=== PATIENT | female | born 1995 | race Caucasian/White ===

== ENCOUNTER 2017-06-13 22:25 | Emergency (ER) | payer SELFPAY ==
[~2017-06-13] VITALS: Ht 175.3 cm; Wt 59.0 kg
[2017-06-13] MEDS ORDERED: NALOXONE 2 MG/2 ML DISP.SYRIN. ONE (22:43)
[2017-06-13 22:51] LABS: BASO # 0.1 x10^3/uL (0.0-0.2); BASO % 1 % (0-3); EOS % 3 % (0-3); HEMOGLOBIN 13.6 g/dL (12.0-15.5); LYMPH # 3.3 x10^3/uL (1.0-4.8); LYMPH % 45 % (24-48); MEAN CORPUSCULAR HEMOGLOBIN 30 pg (25-35); MEAN CORPUSCULAR HGB CONC 33 g/dL (31-37); MEAN CORPUSCULAR VOLUME 92 fL (79-100); MONO % 7 % (0-9); NEUT % 44 % (31-73); PLATELET COUNT 133 x10^3/uL (140-400); RED BLOOD COUNT 4.48 x10^6/uL (3.50-5.40); RED CELL DISTRIBUTION WIDTH 13.1 % (11.5-14.5); WHITE BLOOD COUNT 7.3 x10^3/uL (4.0-11.0)
[2017-06-13] MEDS ORDERED: IV NORMAL SALINE 1000ML BAG 1,000 ML IV ONE (23:00)
[2017-06-13 23:02] LABS: CALCIUM 8.2 mg/dL (8.5-10.1); CREATININE 0.8 mg/dL (0.6-1.0); GFR 88.1; POTASSIUM 3.7 mmol/L (3.5-5.1)
[2017-06-13 23:08] LABS: ALBUMIN 3.7 g/dL (3.4-5.0); ALBUMIN/GLOBULIN RATIO 1.1 (1.0-1.7); TOTAL BILIRUBIN 0.2 mg/dL (0.2-1.0); TOTAL PROTEIN 7.1 g/dL (6.4-8.2)
--- NOTE | 2017-06-14 00:41 | PHYS DOC ---
Past Medical History Past Medical History: No Pertinent History, Other Additional Past Medical Histor: drug abuse Past Surgical History: No Surgical History Alcohol Use: Occasionally Drug Use: Heroin, Marijuana, Other Social History Narrative: K2 Adult General Chief Complaint Chief Complaint: OVERDOSE of heroin HPI HPI Patient is a 22 year old female brought to the ED by EMS after she was reportedly injecting heroin and became unconscious, EMS reportedly administered Narcan and she had a good response. She reportedly also used "K2". On arrival, patient states "I just a little bit too much". She admits that she was injecting heroin into her vein. She denies any intention to harm herself, she was recreationally using heroin. She states that she was with friends at the time. She lives with her father but he is disabled. She asked us to call her mother. Patient denies any chronic medical problems or chronic medications. Review of Systems Review of Systems Patient is too lethargic to be able to cooperate with review of systems on arrival to the ED. Current Medications Current Medications Current Medications Medications (Trade) Dose Ordered Sig/Ky Start Time Stop Time Status Last Admin Dose Admin Naloxone HCl (Narcan) 2 mg STK-MED ONCE 06/13/17 22:43 06/13/17 22:44 DC Sodium Chloride 1,000 ml @ 1,000 mls/hr 1X ONCE 06/13/17 23:00 06/13/17 23:59 DC 06/13/17 22:40 1,000 MLS/HR Allergies Allergies Allergies Coded Allergies Type Severity Reaction Last Updated Verified Penicillins Allergy Unknown 06/13/17 Yes Physical Exam Physical Exam Constitutional: Thin, she has been vomiting, she has eyes closed and is trying to curl up in a ball, she speaks with 2 or 3 words when spoken to with slightly slurred speech. HENT: Normocephalic, atraumatic, bilateral external ears normal, nose normal. [ ] Eyes: conjunctiva normal, no discharge. [] Neck: Normal range of motion, no stridor. [] Cardiovascular:Heart rate regular rhythm, no murmur [] Lungs & Thorax: Bilateral breath sounds clear to auscultation [] Abdomen: Bowel sounds normal, soft, no tenderness, no masses, no pulsatile masses. [] Skin: Warm, dry, no erythema, no rash. She does have recent puncture major in the right antecubital. Extremities: No tenderness, no cyanosis, no clubbing, ROM intact, no edema. [] Neurologic: Lethargic as described, normal motor function, normal sensory function, no focal deficits noted. [] Current Patient Data Vital Signs Vital Signs Date Time Temp Pulse Resp B/P (MAP) Pulse Ox O2 Delivery O2 Flow Rate FiO2 06/14/17 00:43 82 16 112/67 (82) 99 Room Air 06/13/17 22:32 99.2 99.2 Lab Values Laboratory Tests Test 06/13/17 22:36 White Blood Count 7.3 x10^3/uL (4.0-11.0) Red Blood Count 4.48 x10^6/uL (3.50-5.40) Hemoglobin 13.6 g/dL (12.0-15.5) Hematocrit 41.0 % (36.0-47.0) Mean Corpuscular Volume 92 fL (79-100) Mean Corpuscular Hemoglobin 30 pg (25-35) Mean Corpuscular Hemoglobin Concent 33 g/dL (31-37) Red Cell Distribution Width 13.1 % (11.5-14.5) Platelet Count 133 x10^3/uL (140-400) L Neutrophils (%) (Auto) 44 % (31-73) Lymphocytes (%) (Auto) 45 % (24-48) Monocytes (%) (Auto) 7 % (0-9) Eosinophils (%) (Auto) 3 % (0-3) Basophils (%) (Auto) 1 % (0-3) Neutrophils # (Auto) 3.2 x10^3uL (1.8-7.7) Lymphocytes # (Auto) 3.3 x10^3/uL (1.0-4.8) Monocytes # (Auto) 0.5 x10^3/uL (0.0-1.1) Eosinophils # (Auto) 0.2 x10^3/uL (0.0-0.7) Basophils # (Auto) 0.1 x10^3/uL (0.0-0.2) Sodium Level 144 mmol/L (136-145) Potassium Level 3.7 mmol/L (3.5-5.1) Chloride Level 106 mmol/L (98-107) Carbon Dioxide Level 31 mmol/L (21-32) Anion Gap 7 (6-14) Blood Urea Nitrogen 11 mg/dL (7-20) Creatinine 0.8 mg/dL (0.6-1.0) Estimated GFR (Cockcroft-Gault) 88.1 BUN/Creatinine Ratio 14 (6-20) Glucose Level 97 mg/dL (70-99) Calcium Level 8.2 mg/dL (8.5-10.1) L Total Bilirubin 0.2 mg/dL (0.2-1.0) Aspartate Amino Transferase (AST) 19 U/L (15-37) Alanine Aminotransferase (ALT) 20 U/L (14-59) Alkaline Phosphatase 48 U/L (46-116) Total Protein 7.1 g/dL (6.4-8.2) Albumin 3.7 g/dL (3.4-5.0) Albumin/Globulin Ratio 1.1 (1.0-1.7) Laboratory Tests 06/13/17 22:36 Laboratory Tests 06/13/17 22:36 EKG EKG [] Radiology/Procedures Radiology/Procedures [] Course & Med Decision Making Course & Med Decision Making Pertinent Labs and Imaging studies reviewed. (See chart for details) 22-year-old female who was reportedly injecting heroin and also ingested K2, was reportedly unconscious prior to prehospital administration of Narcan. In the ED, she is clinically consistent with recent opiate use, drowsy, lethargic, but maintaining her airway and following commands without difficulty. Patient was given a liter of IV fluids. She was watched in the ED for 2 hours on the monitor. She did not have any desaturation or recent sedation. She did sleep comfortably during most of her ED stay. Police department came to take a report and they ended up taking the patient into custody. After 2 hours with no recent sedation or further complications, I felt the patient was stable for release to custody of police department. [] Dragon Disclaimer Dragon Disclaimer This electronic medical record was generated, in whole or in part, using a voice recognition dictation system. Departure Departure Impression: Primary Impression: Accidental heroin overdose Additional Impression: Opiate abuse, episodic Disposition: 05 TRANSFER OTHER Condition: IMPROVED Referrals: NO PCP (PCP) Patient Instructions: Opiate Dependence Additional Instructions: After heroin overdose, you were given Narcan to reverse the effects of heroin. You were observed here for over 2 hours without recurrence of problems related to heroin. Get plenty of sleep and drink plenty of fluids tonight and tomorrow. Call your doctor for referral to opiate dependency care. Problem Qualifiers MELANIE FORBES MD Jun 14, 2017 00:41
[2017-06-14 00:43] VITALS: BP 112/67
--- NOTE | 2017-06-16 08:10 | EKG ---
[facility] [address] [place] [id number] Test Date: 2017-06-13 Test Time: 22:36:54 Pat Name: ESTELLA SMALL Department: Room: Gender: F Complaint Evaluation Supervisor: : 1995 Requested By: MELANIE FORBES Order Number: [id number] Reading MD: Measurements Intervals [place] Rate: 91 P: 48 AR: 136 QRS: 53 QRSD: 88 T: 39 QT: 320 QTc: 395 Interpretive Statements SINUS RHYTHM NORMAL ECG RI6.01 No previous ECG available for comparison
== END 2017-06-14 00:48 | disposition home or self-care (01) ==
LOC: ER 22:25
DX: T40.1X1A Poisoning by heroin, accidental (unintentional), initial encounter (principal); F11.10 Opioid abuse, uncomplicated; F12.10 Cannabis abuse, uncomplicated; Z88.0 Allergy status to penicillin; Y92.89 Other specified places as the place of occurrence of the external cause
CPT/HCPCS: 36415; 80053; 85027; 93005; 96360; 99285; J7030